=== PATIENT | female | born 1955 | race Caucasian/White ===

== ENCOUNTER 2016-12-28 18:42 | Emergency (ER) | payer OTHER ==
[2016-12-28 18:49] VITALS: BP 143/70; PULSE 66; TEMP 98.7; BMI 22.3
--- NOTE | 2016-12-28 21:09 | PDOC ---
History of Present Illness - General Chief Complaint: Pain Stated Complaint: PAIN UNDER RT BREAST/INJURY Time Seen by Provider: 12/28/16 20:00 History Source: Patient Exam Limitations: No Limitations - History of Present Illness Initial Comments: CHIEF COMPLAINT: 61 y/o afebrile female c/o right rib pain s/p fall 1 week ago. HISTORY OF PRESENT ILLNESS: Pt had a slip and fall 1 week ago and landed on her right side. 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 She states it hurts with deep breaths and when she touches the area. She has been taking meloxicam with little relief. Vital signs on arrival are within normal limits. REVIEW OF SYSTEMS: GENERAL/CONSTITUTIONAL: No fever/chills. No weakness. No weight change. RESPIRATORY: +pain with deep breaths. RIBS: +pain of right ribs MUSCULOSKELETAL: No joint or muscle swelling or pain. No neck or back pain. PHYSICAL EXAM: GENERAL: The patient is awake, alert, and fully oriented, in no acute distress. she is well appearing and ambulatory. HEAD: Normal with no signs of trauma. CHEST WALL: Reproducible pain with palpation of anterior right ribs, T5-T8 without obvious deformities, swelling or erythema. LUNGS: CTA EXTREMITIES: Normal range of motion, no edema. NEUROLOGICAL: Normal speech, normal gait. CN II-XII grossly intact. PSYCH: Normal mood, normal affect. SKIN: Warm, dry, normal turgor, no rashes or lesions noted. Past History - Past Medical History Allergies/Adverse Reactions: Allergies Allergy/AdvReac Type Severity Reaction Status Date / Time No Known Allergies Allergy Verified 12/28/16 18:45 Home Medications: Ambulatory Orders Acetaminophen [Tylenol] 650 mg PO Q6H #30 tablet 08/19/15 Cyclobenzaprine HCl [Flexeril] 5 mg PO TID #9 tablet 08/19/15 GI Disorders: Yes (?) - Psycho/Social/Smoking Cessation Hx Anxiety: No Suicidal Ideation: No Smoking History: Never smoked Hx Alcohol Use: No Drug/Substance Use Hx: No Substance Use Type: None *Physical Exam - Vital Signs Last Vital Signs Temp Pulse Resp BP Pulse Ox 98.7 F 66 18 143/70 97 12/28/16 18:46 12/28/16 18:46 12/28/16 18:46 12/28/16 18:46 12/28/16 18:46 Medical Decision Making - Medical Decision Making A/P: 61 y/o afebrile female with most likely rib bruise. Plan is as follows: 1. xray right ribs Xray right rib IMPRESSION: (wet read) No pneumothorax. No obvious rib fracture. Gave patient the results. Suggested she take 600mg of ibuprofen every 6 hours with food for pain, apply ice to the affected area and take deep breaths multiple times per hour. Also suggested she avoid her work functions for a few days if she can and provided a work note. Instructed her to return to the ER with any worsening or concerning symptoms. The patient verbalizes understanding of all instructions, has no further questions and is awaiting discharge. *DC/Admit/Observation/Transfer Diagnosis at time of Disposition: Contusion of rib on right side Qualifiers: Encounter type: initial encounter Qualified Code(s): S20.211A - Contusion of right front wall of thorax, initial encounter - Discharge Dispostion Disposition: HOME Condition at time of disposition: Good - Referrals Referrals: STAFF,NOT ON [Primary Care Provider] - - Patient Instructions Printed Discharge Instructions: DI for Rib Contusion Additional Instructions: Discharge Instructions: -Take 600mg of Motrin every 6 hours with food for pain -Apply ice to the affected area to help with pain -Take many deep breaths every hour -Avoid heavy lifting, pushing and pulling until your symptoms improve -Return to the ER with any worsening or concerning symptoms. - Post Discharge Activity Work/School Note: Back to Work
== END 2016-12-28 23:18 | disposition home or self-care (01) ==
LOC: JERFT 18:42
DX: S20.211A Contusion of right front wall of thorax, initial encounter (principal); W19.XXXA Unspecified fall, initial encounter; Y93.9 Activity, unspecified; Y92.89 Other specified places as the place of occurrence of the external cause
CPT/HCPCS: 71111-TC; 99281-25

== ENCOUNTER 2022-09-24 20:26 | Emergency (ER) | payer OTHER ==
[2022-09-24 20:38] VITALS: BP 175/64; PULSE 97; RESP 20; TEMP 97.6; BMI 27.3
[2022-09-24] MEDS ORDERED: ACETAMINOPHEN 325 MG TABLET (FP) PO ONE (21:45)
[2022-09-24] MEDS ORDERED: ACETAMINOPHEN 325 MG TABLET (FP) ONE (21:55)
== END 2022-09-24 22:59 | disposition home or self-care (01) ==
LOC: JER 20:26
DX: S99.912A Unspecified injury of left ankle, initial encounter (principal); W20.8XXA Other cause of strike by thrown, projected or falling object, initial encounter
CPT/HCPCS: 73610-TC-LT-FY; 73630-TC-LT; 99283-25

== ENCOUNTER 2022-09-26 22:48 | Emergency (ER) | payer OTHER ==
[2022-09-26 23:14] VITALS: BP 144/72; PULSE 88; RESP 16; TEMP 98.6; BMI 29.5
[2022-09-26] MEDS ORDERED: ACETAMINOPHEN 325 MG TABLET (FP) PO ONE (23:37)
[2022-09-26] MEDS ORDERED: ACETAMINOPHEN 325 MG TABLET (FP) ONE ×2 (23:56→23:58)
== END 2022-09-27 00:07 | disposition home or self-care (01) ==
LOC: JER 22:48
DX: H10.9 Unspecified conjunctivitis (principal)
CPT/HCPCS: 99283-25

== ENCOUNTER 2023-10-15 23:06 | Emergency (ER) | payer OTHER ==
[2023-10-15 23:11] VITALS: BP 164/61; PULSE 100; RESP 18; TEMP 98.8; BMI 28.9
== END 2023-10-16 02:30 | disposition home or self-care (01) ==
LOC: JER 23:06
DX: R05.9 Cough, unspecified (principal); R06.2 Wheezing; B97.4 Respiratory syncytial virus as the cause of diseases classified elsewhere; Z20.822 Contact with and (suspected) exposure to COVID-19
CPT/HCPCS: 0241U-QW; 71045-TC-FY; 87070; 87651; 93005; 93010; 99285-25